=== PATIENT | male | born 1950 | race Two or more races ===

== ENCOUNTER 2022-03-29 15:26 | Outpatient (CLI) | payer MEDICARE, OTHER ==
[2022-03-29] MEDS ORDERED: LIDOCAINE SOLN 4% 50 ML BOTTLE ONE (15:52)
[2022-03-29] MEDS ORDERED: LIDOCAINE 2% 20 ML MDV ONE (15:53)
== END 2022-03-29 23:59 | disposition home or self-care (01) ==
LOC: WOU 15:26
PROVIDERS: ATTEND Specialist
DX: L03.011 Cellulitis of right finger (principal)
CPT/HCPCS: 10060; J3490